=== PATIENT | male | born 1930 | race Caucasian/White ===

== ENCOUNTER 2018-03-31 10:22 | Emergency (ER) | payer MEDICARE ==
[~2018-03-31] VITALS: Ht 172.7 cm; Wt 61.4 kg
[2018-03-31] MEDS ORDERED: LIDOcaine 1% 30ml preserv. free vial IJ ONE (12:15)
[2018-03-31] MEDS ORDERED: LIDOcaine 1.5% w/epinephrine 1:200,000 5ml ampul IJ ONE (12:15)
[2018-03-31] MEDS ORDERED: TETanus/Pertussis (Acell)/Diphther VAC/PF (Tdap-Adult) 0.5ml syringe IM ONE (12:15)
[2018-03-31 13:15] VITALS: BP 142/60
== END 2018-03-31 14:17 | disposition home or self-care (01) ==
LOC: ER 10:23
DX: S01.81XA Laceration without foreign body of other part of head, initial encounter (principal); S61.012A Laceration without foreign body of left thumb without damage to nail, initial encounter; S61.011A Laceration without foreign body of right thumb without damage to nail, initial encounter; M25.512 Pain in left shoulder; W19.XXXA Unspecified fall, initial encounter; Y93.01 Activity, walking, marching and hiking; Y92.89 Other specified places as the place of occurrence of the external cause; Y99.9 Unspecified external cause status
CPT/HCPCS: 12002; 12014; 70450; 73030; 90471; 90715; 99284; J3490